=== PATIENT | male | born 1985 | race Caucasian/White ===

== ENCOUNTER 2017-02-19 09:22 | Emergency (ER) | END 2017-02-19 14:12 | disposition home or self-care (01) ==

== ENCOUNTER 2018-03-16 08:06 | Emergency (ER) | payer MEDICAID ==
[~2018-03-16] VITALS: Wt 101.2 kg
[~2018-03-16 08:06] MED LIST: ACET500C5 PO; BEN25 PO; ELEC100080 PO; FAMO-96 PO; GUAI5SYR2 PO; IBUP-1542 PO; OSEL75CA23 PO; PRED20TA PO; TRIA15CR55 TOP
[2018-03-16] MEDS ORDERED: LIDOCAINE 1% (MDV) 10 ML INJ INJ STA (08:23)
[2018-03-16] MEDS ORDERED: LIDOCAINE 1% (MDV) 20 ML INJ INJ STA (08:29)
[2018-03-16] MEDS ORDERED: HYDROCODONE/APAP (5/325) TAB PO ONE (08:30)
[2018-03-16] MEDS ORDERED: DIPHTH/TET/ACEL PERTUSS (ADULT) 0.5 ML VIAL IM* ONE (08:30)
[2018-03-16] MEDS ORDERED: CEFAZOLIN 2 GM/50 ML (PMX) 50 ML IVPB ONE (09:30)
[2018-03-16] MEDS ORDERED: CEPH-443 PO (11:22)
[2018-03-16] MEDS ORDERED: HYDR-4011 PO (11:23)
--- NOTE | 2018-03-16 11:31 | ERD ---
ER Documentation Chief Complaint Chief Complaint left middle finger lac HPI Patient is a 32-year-old male with no past medical history presents the ER for concerns of a left middle finger laceration which occurred prior to arrival. Patient states he was using a saw at home to cut tile when he accidentally cut his finger. Patient denies any numbness or tingling. Injury is limited to the distal aspect of his left middle finger and nailbed. Patient is right-hand dominant. Patient does not recall his last tetanus vaccination. ROS All systems reviewed and are negative except as per history of present illness. Medications Home Meds Active Scripts Hydrocodone/Acetaminophen ([place] 5-325 Tablet) 1 Each Tablet, 1 TAB PO Q6H PRN for PAIN, #7 TAB Prov:CAMILO XIONGC 03/16/18 Cephalexin* (Keflex*) 500 Mg Capsule, 500 MG PO TID for 7 Days, CAP Prov:CAMILO XIONGC 03/16/18 Electrolyte,Oral (Pedialyte) 1,000 Ml Solution, 100 ML PO Q6 PRN for FEVER, #1000 ML Prov:JULIÁN EDMONDSONC 02/19/17 Guaifenesin-Dextromethorphan* (Robitussin* DM) 100MG/10MG/5ML Syrup, 10 ML PO Q6H PRN for COUGH for 5 Days, ML Prov:JULIÁN EDMONDSONC 02/19/17 Acetaminophen* (Tylophen*) 500 Mg Capsule, 1 CAP PO Q6H PRN for PAIN AND OR ELEVATED TEMP, #30 CAP Prov:JULIÁN EDMONDSONC 02/19/17 Ibuprofen* (Motrin*) 600 Mg Tab, 600 MG PO Q6, #30 TAB Prov:JULIÁN DEMONDSONC 02/19/17 Oseltamivir Phosphate* (Tamiflu*) 75 Mg Capsule, 75 MG PO BID for 5 Days, CAP Prov:JULIÁN EDMONDSONC 02/19/17 Prednisone* (Prednisone*) 20 Mg Tab, 40 MG PO DAILY for 4 Days, TAB Prov:TERE VALLEJOC 02/15/16 Diphenhydramine Hcl* (Benadryl*) 25 Mg Cap, 25 MG PO Q6, #30 CAP Prov:YONITERE FISH 02/15/16 Famotidine* (Pepcid*) 20 Mg Tablet, 20 MG PO BID for 4 Days, TAB Prov:YONITERE FISH 02/15/16 Triamcinolone Acetonide (Triamcinolone Acetonide) 0.1% - 15 Gm Cream.gm., 1 APPLIC TOP BID, #1 TUB Prov:YONITERE FISH 02/15/16 Allergies Allergies: Coded Allergies: No Known Allergy (Unverified , 03/16/18) PMhx/Soc Medical and Surgical Hx: pt denies Medical Hx, pt denies Surgical Hx Hx Alcohol Use: No Hx Substance Use: No Hx Tobacco Use: No Smoking Status: Never smoker FmHx Family History: No diabetes Physical Exam Vitals Vital Signs Date Temp Pulse Resp B/P (MAP) Pulse Ox O2 O2 Flow FiO2 Time Delivery Rate 03/16/18 98.2 79 18 135/87 99 08:10 (103) Physical Exam GENERAL: Well-developed, well-nourished male. Appears in no acute distress. HEAD: Normocephalic, atraumatic. EYES: Pupils are equally reactive bilaterally. EOMs grossly intact. No conjunctival erythema. ENT: Moist mucous membranes. No uvula deviation. No kissing tonsils. NECK: Supple. No meningismus. Normal range of motion of the neck. LUNG: Clear to auscultation bilaterally. No rhonchi, wheezing, rales or coarse breath sounds. HEART: Regular rate and rhythm. No murmurs, rubs or gallops. EXTREMITIES: Equal pulses bilaterally. No peripheral clubbing, cyanosis or edema. No unilateral leg swelling. NEUROLOGIC: Alert and oriented. Moving all four extremities without any difficulty. Normal speech. Steady gait. L 3RD DIGIT: Nail avulsion and jagged laceration noted to the distal tip of the left third digit. Proximal end of nail missing. Visualization of the bone noted. Patient able to bend at DIP PIP and MCP joint without difficulty. Minimal bleeding. Normal pulses. Results 24 hrs Current Medications Medications Dose Sig/Thang Start Time Status Last (Trade) Ordered Route PRN Stop Time Admin Dose Reason Admin Lidocaine 10 ml ONCE STAT 03/16/18 DC HCl INJ 08:23 (Lidocaine 03/16/18 08:25 1% (Mdv) 10 ml) 1 tab ONCE ONCE 03/16/18 DC 03/16/18 Acetaminophen PO 08:30 08:33 / 03/16/18 08:35 Hydrocodone Bitart ([place] (5/325)) Diphtheria/ 0.5 ml ONCE ONCE 03/16/18 DC 03/16/18 Tetanus/Acell IM* 08:30 08:33 Pertussis 03/16/18 08:35 (Adacel) Lidocaine 10 ml ONCE STAT 03/16/18 DC (Xylocaine INJ 08:29 1% (Mdv) 20 03/16/18 08:35 ml) Cefazolin 50 ml @ ONCE ONCE 03/16/18 DC 03/16/18 Sodium/ 100 mls/hr IVPB 09:30 09:43 Dextrose 03/16/18 09:59 Procedures/MDM ED COURSE: The patient was stable throughout ED course. I kept the patient and/or family informed of laboratory and diagnostic imaging results throughout the ED course. DIAGNOSTIC IMAGING: Read by radiologist. DIAGNOSTIC IMAGING REPORT Patient: LYNDON HAMILTON : 1985 Age: 32 Sex: M MR #: [id number] DOS: 03/16/18913 Ordering MD: CAMILO XIONG PA-C Location: [facility] Room/Bed: PROCEDURE: XR Finger. CLINICAL INDICATION: Laceration. TECHNIQUE: 3 views of the left third finger are available for review. COMPARISON: None available FINDINGS: There is a minimally displaced comminuted fracture of the third distal phalanx without extension into the distal interphalangeal joint. There is cortical irregularity along the dorsal aspect of the distal phalanx with irregularity of the overlying skin along the dorsal and ulnar aspect from the laceration. No visualized radiopaque foreign body. The joint spaces are maintained. Remainder of the bones are intact. RPTAT: KEYANNA IMPRESSION: 1. Minimally displaced comminuted fracture of the third distal phalanx. 2. Laceration along the dorsal and ulnar aspect of the third digit over the third distal phalanx. .Meghan Helms MD, Date Time Electronically viewed and signed by .Meghan Helms MD, MD on 03/16/2018 09:34 .T/ CC: CAMILO XIONG PA-C [id number] PROCEDURES: Laceration Repair: The patient was verbally consented prior to procedure. Patient was explained the risks, benefits and alternatives to this procedure. Length: Check laceration to the distal tip of the finger on the proximal side of the nailbed. Irrigation: Thorough irrigation was performed with normal saline and adequate pressure. Inspection: The wound was thoroughly explored and no foreign bodies, deep tissue, tendon or structural injuries were noted. Anesthesia: 4 cc 1% lidocaine without epinephrine perform a digital block of the affected digit. Repair: The area was prepared and draped in the usual sterile manner with the wound exposed. 6, Prolene 5 -0 sutures were placed with good wound closure and wound approximation. Bleeding was minimal. The patient tolerated the procedure well with no complications. Surgicel was placed over the avulsed area. Patient was able to bend at PIP, DIP and MCP joints pre-and post procedure. Post- procedural wound care was discussed with the patient. SPLINT APPLICATION: The patient was verbally consented at bedside prior to splint application. Patient was explained the risks, benefits and alternatives to this procedure. The patient was neurovascularly intact prior to and status post application of the splint. The patient tolerated the procedure well with no complications. Splint type: Metal finger split Extremity: Left third digit Indication: Open fracture of the distal phalanx of the third digit and laceration MEDICATIONS GIVEN: [place], Ancef Patient tolerated medication well with no adverse reactions. Patient reported improvement in pain. MEDICAL DECISION MAKING: This is a 32-year-old male who presents the ER for concerns of a laceration to the distal aspect of his left third digit. Vital signs were reviewed. Patient was afebrile. Laceration was noted to be complicated with proximal nail avulsion. Wound was noted to be open and bony visualization was noted. 6 sutures were used to approximate laceration edges. Surgicell was placed. X-ray imaging showed 1. Minimally displaced comminuted fracture of the third distal phalanx. 2. Laceration along the dorsal and ulnar aspect of the third digit over the third distal phalanx. Patient was given Ancef here for concerns of an open fracture. Case is discussed with supervising physician Dr. Rodas, who agreed that patient will need to follow-up with a hand surgeon on outpatient basis AYAD . Referral information for [facility] hand clinic. Patient was advised to go to the [facility] hand clinic today upon leaving this ER. Low suspicion for neurovascular injury. PRESCRIPTIONS: [place], Keflex The patient has been prescribed L[place] during this encounter. The patient has been warned about the use of narcotics. The patient should not drive or operate heavy machinery while taking this medication. The patient was also warned about the addictive properties of narcotic medications. Narcan prescription was NOT provided given the following criteria: Less than 5 tablets of [place] 10 mg or 10 tablets of [place] 5 mg were prescribed. DISCHARGE: At this time, the patient is stable for discharge and outpatient management. Post-procedural wound care was discussed with the patient. The patient has been advised to return to the ER in 2 days for a wound check and then again in [] days for suture removal. I have instructed the patient to promptly return to the ER for any new or worsening symptoms including increasing pain, fever, warmth, redness or swelling. The patient and/or family expressed understanding of and agreement with this plan. All questions were answered. Home care instructions were provided. Disclaimer: Inadvertent spelling and grammatical errors are likely due to EHR/dictation software use and do not reflect on the overall quality of patient care. Also, please note that the electronic time recorded on this note does not necessarily reflect the actual time of the patient encounter. Departure Diagnosis: Primary Impression: Open fracture of finger Encounter type: initial encounter Finger: index finger Phalanx: unspecified phalanx Fracture alignment: nondisplaced Laterality: left Qualified Codes: S62.601B - Fracture of unspecified phalanx of left index finger, initial encounter for open fracture Additional Impressions: Laceration Nail avulsion, finger Encounter type: initial encounter Qualified Codes: S61.309A - Unspecified open wound of unspecified finger with damage to nail, initial encounter Condition: Stable Patient Instructions: Finger Tip Amputation, Open Treatment, Laceration, Hand Referrals: [facility] YOU HAVE RECEIVED A MEDICAL SCREENING EXAM AND THE RESULTS INDICATE THAT YOU DO NOT HAVE A CONDITION THAT REQUIRES URGENT TREATMENT IN THE EMERGENCY DEPARTMENT. FURTHER EVALUATION AND TREATMENT OF YOUR CONDITION CAN WAIT UNTIL YOU ARE SEEN IN YOUR DOCTORS OFFICE WITHIN THE NEXT 1-2 DAYS. IT IS YOUR RESPONSIBILITY TO MAKE AN APPOINTMENT FOR FOLOW-UP CARE. IF YOU HAVE A PRIMARY DOCTOR --you should call your primary doctor and schedule an appointment IF YOU DO NOT HAVE A PRIMARY DOCTOR YOU CAN CALL OUR PHYSICIAN REFERRAL HOTLINE AT IF YOU CAN NOT AFFORD TO SEE A PHYSICIAN YOU CAN CHOSE FROM THE FOLLOWING [facility] [address] [facility] [address] [facility] [address] [facility] [address] [facility] [address] [facility] [address] [facility] [address] [facility] [facility] YOU HAVE RECEIVED A MEDICAL SCREENING EXAM AND THE RESULTS INDICATE THAT YOU DO NOT HAVE A CONDITION THAT REQUIRES URGENT TREATMENT IN THE EMERGENCY DEPARTMENT. FURTHER EVALUATION AND TREATMENT OF YOUR CONDITION CAN WAIT UNTIL YOU ARE SEEN IN YOUR DOCTORS OFFICE WITHIN THE NEXT 1-2 DAYS. IT IS YOUR RESPONSIBILITY TO MAKE AN APPOINTMENT FOR FOLOW-UP CARE. IF YOU HAVE A PRIMARY DOCTOR --you should call your primary doctor and schedule and appointment IF YOU DO NOT HAVE A PRIMARY DOCTOR YOU CAN CALL OUR PHYSICIAN REFERRAL HOTLINE AT . IF YOU CAN NOT AFFORD TO SEE A PHYSICIAN YOU CAN CHOSE FROM THE FOLLOWING [facility]: [facility] [address] [place] [address] [facility] [address] [place] [address] [facility] [address] [place] [address] [facility] Additional Instructions: Go to [facility] upon leaving ER. See referral information. Take antibiotics as prescribed. CAMILO XIONG PA-C Mar 16, 2018 11:31
[2018-03-16 11:51] VITALS: BP 131/85; PULSE 73; RESP 18
== END 2018-03-16 11:53 | disposition home or self-care (01) ==
LOC: FTE 08:06
DX: S62.633B Displaced fracture of distal phalanx of left middle finger, initial encounter for open fracture (principal); S61.313A Laceration without foreign body of left middle finger with damage to nail, initial encounter; W27.0XXA Contact with workbench tool, initial encounter; Y92.9 Unspecified place or not applicable; Z23 Encounter for immunization
CPT/HCPCS: 11760; 73140; 90471; 90715; 96374; J0690; Z7502; Z7610